=== PATIENT | female | born 1960 ===

== ENCOUNTER 2018-09-01 09:09 | Emergency (ER) | payer OTHER ==
[~2018-09-01] VITALS: Ht 160 cm; Wt 99.8 kg
--- OUTSIDE RECORDS SUMMARY | 2018-09-01 11:44 | XMS ---
PreManage Notification: [facility] [employer] Events No recent Security Events currently on file [facility] There are no care providers on record at this time. [facility] has no Care Guidelines for this patient. Chelsey VISIT COUNT (12 MO.) 1 ANGELA Rene TOTAL 1 NOTE: Visits indicate total known visits. ED/UCC VISIT TRACKING (12 MO.) 09/01/2018 09:10 ANGELA Whitaker OR TYPE: Emergency COMPLAINT: - YELLOW JACKET STING/POSS ALLERGIC REACTION INPATIENT VISIT TRACKING (12 MO.) No inpatient visits to display in this time frame [email or web address]
== END 2018-09-01 09:28 | disposition home or self-care (01) ==
LOC: ED 09:09
DX: R22.0 Localized swelling, mass and lump, head (principal)